=== PATIENT | female | born 1955 | race Caucasian/White ===

== ENCOUNTER 2017-09-09 14:27 | Observation (INO) ==
[2017-09-09] MEDS ORDERED: Ondansetron 4 MG/2 ML VIAL IVP PRN (22:03)
[2017-09-09] MEDS ORDERED: Naloxone 0.4 MG/ML INJ IVP PRN (22:03)
[2017-09-09] MEDS ORDERED: *HR* Morphine 2 MG/ML SYRINGE IVP PRN (22:03)
[2017-09-09] MEDS ORDERED: *HR* OxyCODONE Immed Rel 5 MG TABLET PO PRN (22:03)
[2017-09-09] MEDS ORDERED: Acetaminophen 325 MG TABLET PO PRN (22:03)
[2017-09-09] MEDS ORDERED: 0.9 % Sodium Chloride w KCl 20 MEQ/1,000 ML MLS IVC SCH (22:15)
--- NOTE | 2017-09-09 22:29 | Internal Med History&Physical ---
Date of Encounter: 09/09/17 Time of Encounter: 21:55 Assessment and Plan (1) Fracture dislocation of left shoulder joint Current visit: Yes Status: Acute 1. Patient with no medical problems or history. 2. Consult orthopedics for surgical intervention. 3. Will order pre-op EKG and routine labs. In my opinion, she is low risk for cardiovascular darryl-operative complications. 4. Further carer per Orthopedics. Qualifiers: Encounter type: initial encounter Fracture type: closed Qualified Code(s) : S42.92XA - Fracture of left shoulder girdle, part unspecified, initial encounter for closed fracture (2) DVT prophylaxis Current visit: Yes Status: Acute 1. Heparin SQ. Internal Medicine - H&P: HPI Chief complaint: shoudler pain Admitted From: Hospital to Hospital Transfer Plans for Post Hospital Care: Home History of present illness: Ms. Godfrey is a 62 year old female who presents in transfer from [facility] ER at the request of Dr. Anguiano. Patient was found to have a humeral neck fracture of her left shoulder after having sustained a mechanical fall earlier today in her house. X-ray and CT imaging confirmed the findings. ER staff contacted Dr. Anguiano from orthopedics, and he requested admission to the hospitalist service with a consult to him. Upon arrival to the hospital, I saw patient and she is resting in bed comfortably. She does have some pain with movement of her shoulder and arm. Otherwise, she is in no distress. Regarding her fall, she states it was mechanical as she tripped over an object on the floor. She denies any syncopal event. She denies any lightheadedness, dizziness, palpitations, chest pain, shortness of breath, or any focal weakness. She has no chronic medical problems and takes no medications. She denies any history of angina or anginal type symptoms. Past Med Surg Social Fam HX - Past Medical History Attestation: Yes The following information was validated with the patient. Source: patient, old records reviewed Medical history: no medical history Psychiatric history: no psych history - Past Surgical History Surgical History: cholecystectomy, hysterectomy - Social History Smoking Status: Never smoker Alcohol use: none Drug use: none Current living situation: Home, With Family Activity Level: Independent ambulation Recent Out of Country Travel Within the Last 8 Weeks: No - Family History Mother Living Status: Still Living Hx Family Cardiac Disorders: No Hx Family Respiratory Disorders: No Father Living Status: Age at : 88 Hx Family Cardiac Disorders: Yes Hx Family Respiratory Disorders: No Internal Medicine - H&P: Meds No Known Home Drugs 09/09/17 [History] 3 Allergy/AdvReac Type Severity Reaction Status Date / Time No Known Allergies Allergy Verified 09/09/17 12:39 - Constitutional Constitutional: no chills, no fever(s) - EENT Eyes: no blurry vision, no change in vision Ears: no ear pain, no tinnitus Nose, mouth and throat: no nasal congestion, no sinus pain, no sinus pressure - Cardiovascular Cardiovascular ROS IM: no chest pain, no dyspnea, no dyspnea on exertion, no lightheadedness, no palpitations, no syncope - Respiratory Respiratory: no cough, no dyspnea, no dyspnea on exertion, no wheezing, no pain on inspiration, no chest congestion - Gastrointestinal Gastrointestinal: no abdominal pain, no diarrhea, no hematemesis, no hematochezia, no melena, no vomiting - Genitourinary Genitourinary: no dysuria, no flank pain, no hematuria - Musculoskeletal Musculoskeletal ROS IM: no back pain, no numbness Additional comments: pain/swelling in her left shoulder - Integumentary Integumentary IM: no rash, no jaundice - Neurological Neurological ROS: no focal weakness, no frequent falls, no headache(s), no weakness - Psychiatric Psychiatric: no anxiety, no depression - Endocrine Endocrine IM: no polydipsia, no polyuria - Hematologic/Lymphatic Hematologic/Lymphatic: no easy bruising, no lymphadenopathy - Allergic/Immunologic Allergic/Immunologic: no wheezing, no GI upset with certain foods - Constitutional Vitals: Temp Pulse Resp BP Pulse Ox 98.4 F 87 18 132/78 95 09/09/17 19:00 09/09/17 19:00 09/09/17 19:00 09/09/17 19:00 09/09/17 19:00 General appearance: Present: cooperative, A&O X 3, pleasant, no acute distress - Head Head exam: Present: atraumatic, normal inspection - Eye Eye exam: Present: EOMI, PERRL. Absent: scleral icterus Pupils: Present: normal accommodation - ENT ENT exam: Present: mucous membranes dry, normal exam - Neck Neck exam general surgery: Present: full ROM, supple. Absent: tenderness - Respiratory Respiratory exam: Present: CTAB. Absent: chest wall tenderness, rales, respiratory distress, rhonchi, wheezes - Cardiovascular Cardiovascular exam: Present: RRR, +S1, +S2. Absent: diastolic murmur, systolic murmur - GI/Abdominal GI/Abdominal exam: Present: normal bowel sounds, soft. Absent: hepatomegaly, mass, splenomegaly, tenderness - Extremities Exam Extremities exam: Present: normal capillary refill, tenderness (left shoulder - - arm in sling), warm, radial pulses palpable and symmetrical. Absent: calf tenderness - Back Exam Back exam: Absent: CVA tenderness (L), CVA tenderness (R) - Neurological Exam Neurological exam: Present: alert, CN II-XII intact, oriented X3, no focal deficits - Psychiatric Psychiatric exam: Present: normal affect, normal mood - Skin Skin exam: Present: dry, warm. Absent: rash Internal Med - H&P Results - Labs Labs: I reviewed her labs from [place] include the following: WBC 12.1 Hemoglobin 12.9 Hematocrit 37.9 Platelet count 254 PT 10.7 INR 1.0 PTT 23.1 Sodium 136 Potassium 3.5 Chloride 101 CO2 26 BUN 22 Creatinine 0.[address] X-ray and CT of her left upper extremity revealed humeral neck fracture.
[2017-09-09] MEDS: *HR* Heparin 5,000 UNIT/ML VIAL SQ SCH (22:50)
[2017-09-10 03:30] LABS: Basophils % 0.2 %; Eosinophils # 0.1 K/mcL (0.0-0.6); Eosinophils % 0.8 %; Hematocrit 35.7 % (35.3-44.9); Hemoglobin 11.9 g/dL (11.5-15.4); Immature Granulocytes % 0.2 % (0-4); Lymphocytes # 2.4 K/mcL (0.6-4.6); Lymphocytes % 23.7 %; Mean Corpuscular HGB Conc 33.3 g/dL (31.6-35.5); Mean Corpuscular Hemoglobin 29.2 pg (28.0-33.3); Mean Corpuscular Volume 87.5 fL (83.0-100.0); Mean Platelet Volume 8.9 fL (9.4-12.4); Monocytes # 0.8 K/mcL (0.0-1.3); Monocytes % 8.3 %; Neutrophils # 6.6 K/mcL (1.6-8.9); Platelet Count 260 K/mcL (140-400); Red Blood Count 4.08 M/mcL (3.82-4.97); Red Cell Distribution Width 13.3 % (11.5-14.5); Segmented Neutrophils % 66.8 %
[2017-09-10 03:43] LABS: Alanine Aminotransferase 148 Units/L (7-52); Albumin 3.8 g/dL (3.5-5.7); Albumin/Globulin Ratio 1.3 (1.1-2.2); Alkaline Phosphatase 100 Units/L (34-104); Aspartate Amino Transferase 119 Units/L (13-39); BUN/Creatinine Ratio 23 (6-26); Bilirubin,Total 1.2 mg/dL (0.3-1.0); Blood Urea Nitrogen 17 mg/dL (8-23); Calcium 8.8 mg/dL (8.6-10.3); Carbon Dioxide 27 mEq/L (23-29); Chloride 104 mEq/L (98-107); Glucose 104 mg/dL (70-105); Osmolality,Calculated 284 (280-300); Sodium 136 mEq/L (136-145); Total Protein 6.8 g/dL (6.4-8.9); eGFR For African Americans > 60 (> 60); eGFR For Non-African Americans > 60 (> 60)
[2017-09-10 04:16] LABS: INR 1.1; Prothrombin Time 11.3 Seconds (9.4-12.1)
[2017-09-10 04:19] LABS: Activated Partial Thrombo Time 24.3 Seconds (26.0-36.0)
[2017-09-10] MEDS: *HR* Heparin 5,000 UNIT/ML VIAL SQ SCH (04:47)
[2017-09-10] MEDS ORDERED: *HR* FentaNYL (PF) 100 MCG/2 ML VIAL ONE (07:07)
[2017-09-10] MEDS ORDERED: *HR* Propofol 200 MG/20 ML VIAL IVP ONE (07:08)
[2017-09-10] MEDS ORDERED: *HR* Midazolam HCl 2 MG/2 ML VIAL ONE (07:08)
[2017-09-10] MEDS ORDERED: Lidocaine -MPF 2% 2 ML VIAL ONE (07:12)
[2017-09-10] MEDS ORDERED: *HR* Succinylcholine 200 MG/10 ML VIAL IVP ONE (07:12)
--- NOTE | 2017-09-10 07:24 | Anesthesia Evaluation PreOp ---
Date of Encounter: 09/10/17 Time of Encounter: 07:22 - Past History Planned Operation: Left Reverse Total Shoulder Cardiac History: Denies any Significant Hx Pulmonary History: Denies Any Significant HX INSTRUMENT REPAIR SUPERVISOR History: Denies Any Significant HX Other Medical History: Denies Any Significant HX Anesthesia History: No Prior Anesthetic Complications, Past Anesthesia Alcohol Use: none Drug use: none Medications and Allergies No Known Home Drugs 09/09/17 [History] 3 Allergy/AdvReac Type Severity Reaction Status Date / Time No Known Allergies Allergy Verified 09/09/17 12:39 - Meds/Allergy Pre-op Review Medications Reviewed: Yes Allergies Reviewed: Yes Beta Blockers on Current Med List: No Anesthesia Results - Labs 09/10/17 03:08 09/10/17 03:08 Anesthesia Exam Vital Signs/O2 Sat, Most Current Temp Pulse Resp BP Pulse Ox 99.3 F 87 17 154/74 94 09/10/17 04:50 09/10/17 04:50 09/10/17 04:50 09/10/17 04:50 09/10/17 04:50 Height: 5'3''/1.6m Weight: 217 lbs/98.4 kg NPO (# of Hours): 8 Pain Scale: 4 (left shoulder) Pain Scale Used: Numeric (1 - 10) - HEENT Pupil (Motor): EOMI Mallampati: II Teeth: Edentulous Denture Type: Upper: Complete, Lower: Complete Oral Opening: Greater than 3 - INSTRUMENT REPAIR SUPERVISOR LOC: Oriented INSTRUMENT REPAIR SUPERVISOR Motor: Normal RUE, Normal LUE, Normal RLE, Normal LLE, Normal Face INSTRUMENT REPAIR SUPERVISOR Sensory: Normal: RUE, LUE, RLE, LLE, Face - Cardiac Rhythm: Regular Murmur: None - Pulmonary Breath Sounds: bilateral Clear Respiratory Effort: Symmetrical Anesthesia Assess/Plan ASA Score: 2 Modified Joy Scale for Level of Consciousness: Cooperative, oriented, and tranquil Anesthetic Plan: General, Regional Monitoring Plan: Standard Monitors Recovery Plan: PACU
[2017-09-10] MEDS ORDERED: Ipratropium/Albuterol Neb 3 ML ONE (07:33)
[2017-09-10] MEDS ORDERED: ROPIVACAINE HCL/PF 0.5% 30 ML VIAL ONE (07:36)
[2017-09-10] MEDS ORDERED: Dexamethasone 4 MG/ML VIAL ONE ×2 (07:37→09:12)
--- NOTE | 2017-09-10 07:39 | Orthopedic Consult Note ---
Date of Encounter: 09/10/17 Time of Encounter: 07:36 Assessment and Plan (1) Proximal humerus fracture Current Visit: Yes Status: Acute Diagnosis and treatment options were discussed with Veronica. She was displaced 4 part proximal humerus fracture and previously had good use of the shoulder. After discussing operative and nonoperative treatment options she is elected to proceed with a left reverse total shoulder with tuberosity repair. Risks and benefits of the procedure were discussed with the patient and she is in agreement to proceed. Consent was obtained. Nothing by mouth for surgery today. Qualifiers: Encounter type: initial encounter Fracture type: closed Fracture alignment: displaced Laterality: left Qualified Code(s): S42.292A - Other displaced fracture of upper end of left humerus, initial encounter for closed fracture History of Present Illness Chief complaint: L shoulder pain HPI: Ms. Godfrey is a 62 year old female sustained a fall onto her left shoulder yesterday. She had immediate pain in the shoulder. She presented to the [place] ER and was diagnosed with a fracture dislocation of her left proximal humerus. The shoulder was reduced in the ER and then she was transferred here for definitive management. She has pain and swelling in the left shoulder. Denies other injury. Neurovascularly she has no complaints. Past Med Surg Social Fam HX - Past Medical History Medical history: no medical history Psychiatric history: no psych history - Past Surgical History Surgical History: cholecystectomy, hysterectomy - Social History Smoking Status: Never smoker Alcohol use: none Drug use: none - Family History Mother Living Status: Still Living Hx Family Cardiac Disorders: No Hx Family Respiratory Disorders: No Father Living Status: Age at : 88 Hx Family Cardiac Disorders: Yes Hx Family Respiratory Disorders: No Medications and Allergies No Known Home Drugs 09/09/17 [History] 3 Allergy/AdvReac Type Severity Reaction Status Date / Time No Known Allergies Allergy Verified 09/09/17 12:39 All Systems Reviewed: A 10-system review of systems was performed and is negative for pertinent findings except as documented above in the HPI. Physical Exam - Constitutional Vitals: Temp Pulse Resp BP Pulse Ox 99.3 F 87 17 154/74 94 09/10/17 04:50 09/10/17 04:50 09/10/17 04:50 09/10/17 04:50 09/10/17 04:50 General appearance IM: A&O X 3, no acute distress Exam: Consult Exam: Constitutional -Vitals reviewed -The patient is well developed and well nourished. -Mood is pleasant. -The patient is well groomed. Psychiatric -The patient is fully alert and oriented x 3. Respiratory: -Respiratory effort normal Abdomen: -Soft abdomen -Non tender -Non distended: Left upper extremity: -Swelling and deformity over left shoulder -TTP proximal humerus -Able to make an "OK" sign, cross the index and long fingers, and extend the thumb. -Sensation grossly intact to light touch throughout the axillary, median, radial , and ulnar distributions. -Radial pulse is present; Fingers have good capillary refill. Right upper extremity: -No deformities. The overlying skin is intact. No obvious signs of acute trauma. -No tenderness to palpation throughout. -No significant pain with passive motion of the shoulder, elbow, wrist, and fingers within the limits of the bed. -Able to make an "OK" sign, cross the index and long fingers, and extend the thumb. -Sensation grossly intact to light touch throughout the median, radial, and ulnar distributions. -Radial pulse is present; Fingers have good capillary refill. Left lower extremity: -No deformities. The overlying skin is intact. No obvious signs of acute trauma. -No tenderness to palpation throughout. -No pain with passive motion of the hip, knee, ankle, and toes within the limits of the bed. -No pain with axial loading of the thigh. -Able to dorsiflex and plantarflex the ankle and toes. -Sensation is grossly intact to light touch throughout the sural, saphenous, superficial peroneal, and deep peroneal distributions. -Toes have good capillary refill. Right lower extremity: -No deformities. The overlying skin is intact. No obvious signs of acute trauma. -No tenderness to palpation throughout. -No pain with passive motion of the hip, knee, ankle, and toes within the limits of the bed. -No pain with axial loading of the thigh. -Able to dorsiflex and plantarflex the ankle and toes. -Sensation is grossly intact to light touch throughout the sural, saphenous, superficial peroneal, and deep peroneal distributions. -Toes have good capillary refill. Results - Labs Result Diagrams: 09/10/17 03:08 09/10/17 03:08 Labs: Abnormal lab results MPV 8.9 fL (9.4-12.4) L 09/10/17 03:08 APTT 24.3 Seconds (26.0-36.0) L 09/10/17 03:08 Total Bilirubin 1.2 mg/dL (0.3-1.0) H 09/10/17 03:08 AST 119 Units/L (13-39) H 09/10/17 03:08 ALT 148 Units/L (7-52) H 09/10/17 03:08 H & H 09/10/17 Range/Units 03:08 Hgb 11.9 (11.5-15.4) g/dL Hct 35.7 (35.3-44.9) % All other labs normal. - Diagnostic results Shoulder x-ray: report reviewed, image reviewed Shoulder CT: report reviewed, image reviewed (Displaced, comminuted 4 part proximal humerus fracture) Consult Discharge Plan - Plan Referrals: Bridgett Pelaez MD [Primary Care Provider] -
--- NOTE | 2017-09-10 08:06 | Anesthesia Procedures ---
Date of Encounter: 09/10/17 Time of Encounter: 08:04 Procedures: Anesthesia - Nerve Block Procedure Date: 09/10/17 Time: 08:04 Allergies/Adv Reactions: NKDA Pre-op Diagnosis: L shoulder fracture Surgical Procedure: L TSR Checklist: Correct Patient Identifier, Correct procedure, History checked Correct side: Left Blood Thinner: No Monitor Applied: EKG, BP, Pulse Oximetry Supplemental Oxygen via Nasal Cannula (L/min): 4 Sedation: Versed (mg): 2 Sedation: Fentanyl (mcg): 100 Indication: Post Op Analgesia (requested by Dr. Anguiano) Pre-op Neuro Deficits: No Block Type: Supraclavicular Catheter placed: No Sterile Technique: Yes Ultrasound used: Yes Anatomy identified: Yes Visual spread of Local: Yes Neuro Stimulation: No Blood on Needle Aspiration: No Smooth Injection of Local: Yes Pain with Injection of Local: No Prep: Chlorhexadine Needle: 22 x 50 mm Stimuplex Local: Ropivacaine (0.5%, 30mL), Other (4mg dexamethasone) Number of Attempts: 1 Complications: None/effective block Vitals: 3 Vital Signs Time pre-procedure post-procedure BP 151/95 135/69 Pulse 88 80 Resp 16 18 O2 Sat 98 97
[2017-09-10] MEDS ORDERED: *HR* HYDROmorphone (PF) 1 MG/ML SYRINGE IVP PRN (08:10)
[2017-09-10] MEDS ORDERED: Ondansetron 4 MG/2 ML VIAL IVP PRN ×3 (08:10→11:31)
[2017-09-10] MEDS ORDERED: *HR* Labetalol 20 MG/4 ML SYRINGE IVP PRN (08:10)
[2017-09-10] MEDS ORDERED: Ipratropium Neb 0.5 MG NEBULIZER IH PRN ×2 (08:10→11:31)
[2017-09-10] MEDS ORDERED: Albuterol 2.5 MG/3 ML NEBULIZER IH PRN ×2 (08:10→11:31)
[2017-09-10] MEDS ORDERED: Tranexamic Acid 1,000 MG/10 ML VIAL ONE (08:29)
[2017-09-10] MEDS ORDERED: ceFAZolin 2,000 MG in Water for inj. (sterile) 20 ML IVP ONE (08:57)
[2017-09-10] MEDS ORDERED: Ondansetron 4 MG/2 ML VIAL ONE (09:12)
[2017-09-10] MEDS ORDERED: *HR* Morphine 10 MG/ML VIAL ONE (10:14)
[2017-09-10] MEDS ORDERED: Ringers Solution, Lactated 1,000 ML ONE (10:44)
[2017-09-10] MEDS ORDERED: Plasma-Lyte A (PH 7.4) 1,000 ML IVC SCH ×2 (10:45→11:31)
--- NOTE | 2017-09-10 11:29 | Anesthesia Evaluation Post Op ---
Date of Encounter: 09/10/17 Time of Encounter: 11:10 - Vital Signs Vital Signs: Vital Signs/O2 Sat, Most Current Temp Pulse Resp BP Pulse Ox 98.1 F 81 16 126/75 94 09/10/17 11:09 09/10/17 11:09 09/10/17 11:09 09/10/17 11:09/10/17 11:09 - Lungs Lungs: Clear Ascult./Percussion - Airway Airway: Non-obstructed - Cardiovascular Regular Rate - Mental Status Mental Status: Asleep with brisk response to light stimulation - Pain Pain Scale: 0 Pain Scale used: Numeric (1 - 10) - Nausea Vomiting Nausea Vomiting: Not Present - Hydration Hydration: NPO, Has not voided - Discharge PostOp Status: Transfer Patient to floor
[2017-09-10] MEDS ORDERED: Naloxone 0.4 MG/ML INJ IVP PRN (11:31)
[2017-09-10] MEDS ORDERED: Sennosides 8.6 MG TABLET PO PRN (11:31)
[2017-09-10] MEDS ORDERED: MOM Conc 10 ML UD.LIQ PO PRN (11:31)
[2017-09-10] MEDS ORDERED: *HR* Morphine 2 MG/ML SYRINGE IVP PRN (11:31)
[2017-09-10] MEDS ORDERED: Acetaminophen 325 MG TABLET PO PRN (11:31)
[2017-09-10] MEDS ORDERED: Ringers Solution, Lactated 1,000 ML IVC SCH (11:31)
[2017-09-10] MEDS ORDERED: Temazepam 15 MG CAPSULE PO PRN (11:31)
--- NOTE | 2017-09-10 11:52 | Orthopedic Operative Note ---
Date of procedure: 09/10/17 Pre-op diagnosis: Left proximal humerus fracture Post-op diagnosis: same Procedure: 1. Left reverse total shoulder arthroplasty 2. Left open biceps tenodesis 3. Left shoulder tuberosity repair Indications: This is a 62-year-old female who had a fall and sustained a displaced four part left proximal humerus fracture. Operative and non-operative treatment options were discussed with the patient, and the patient has elected for a left reverse shoulder replacement with tuberosity repair. The risks and benefits of the procedure were fully explained to the patient. These risks include, but are not limited to, the risk of infection, neurovascular injury, continued pain and stiffness of the shoulder, need for further surgery, DVT, PE , loss of limb and loss of life. The patient did understand all of these risks and wishes to proceed. Informed consent was then obtained. Operative procedure: The patient was brought back to the OR suite by the anesthesia staff. The patient was then placed supine on the operating table and all bony prominences were padded. The anesthesiologist then performed successful general anesthetic for the remainder of the case. The head, neck and airway were secured and protected by anesthesia. The bed was elevated about 30 degrees. The right upper extremity was then prepped and draped in the normal sterile orthopedic fashion and placed in the [place] arm joseph. Preoperative antibiotics were then given prior to incision. A timeout was performed confirming the correct patient, site and side, procedure to be performed and any allergies. All were in agree and we did proceed. A standard deltopectoral approach was performed. We dissected down through the skin coagulating any bleeders were encountered. The cephalic vein was then identified and taken laterally with the deltoid. Adhesions were cleared from underneath the deltoid and a brown retractor was placed. The interval between the deltoid and pectoralis was then developed and kolbel retractor was placed. A Darrach retractor was then placed under the acromion. The biceps tendon was exposed and identified, and then released proximally into the rotator interval. Soft tissue tenodesis of the remaining biceps was then performed. The lateral border of the conjoined tendon was then identified and the fracture of the lesser tuberosity, humeral head, and greater tuberosity fragments were identified. The lesser tuberosity fragment was off of the humeral shaft, this was retracted, exposing the humeral head. The humeral head was removed using a pointed reduction clamp. Several niceloop sutures were then placed around the lesser and greater tuberosities. Any bony debris was removed from the proximal humerus. Attention was then turned to the glenoid. The humerus was subluxed posteriorly and retractors were placed on the anterior and posterior aspects of the glenoid. A 360 degree release of the subscapularis was performed, and the axillary nerve was palpated and protected throughout the case. Labral debridement was then performed. A central guide pin was placed in the appropriate position on the glenoid. The central drill hole was made and the glenoid was then reamed in accordance with the aequalis reverse system. The baseplate was impacted in place and the remaining peripheral drill holes were drilled and the appropriate length screws were placed, 2 in compression, 2 locking. The lateralized glenosphere was then inserted and locked in to place with the locking screw. Attention was turned back to the humerus. The humerus was subluxed back anteriorly and the humerus was reamed and broached up to a size 5. A trial humeral stem and cup were placed. Trial reduction was then performed to make sure we could reduce the humerus. The size 5 stem was then press fit in place, using the greater tuberosity as a guide to our humeral height. We retrialed the humeral cup and tray until we had adequate stability. We also ensured the greater and lesser tuberosity could be reduced to the stem. The final size +9 humeral cup was placed and the shoulder reduced. The niceloop sutures from the lesser and greater tuberosities were then passed through the fracture stem. Bone graft from the humeral head was placed on the undersurface of both tuberosities to aid in healing. The tuberosities were then held in place and tied back on to the humeral shaft. The shoulder was then taken through ROM to ensure stability of the prosthesis and tuberosity repair. The wound was then copiously irrigated, the deltopectoral interval was tagged with 2-0 surgilon, and the incision was closed with 2-0 stratafix deep and a running 3-0 stratafix subcuticular. Sterile dressing was placed, the arm was placed in a sling and the patient was taken to the PACU in stable condition. There were no complications during the case. Post op plan: The patient will go into the reverse shoulder protocol. Implants: tornier aequalis flex 5B PTC stem +0 centered tray 36+9 mm poly 25 mm standard baseplate 36x25 mm lateralized glenosphere Complications: none Anesthesia: GETA, regional Surgeon: Ty Anguiano Was there an assistant pastry chef present: No Estimated blood loss (cc): 150 Condition: stable Disposition: PACU
[2017-09-10] MEDS: 0.9 % Sodium Chloride w KCl 20 MEQ/1,000 ML MLS IVC SCH ×2 (12:16→17:14)
--- NOTE | 2017-09-10 14:13 | Discharge Summary ---
Date of Encounter: 09/10/17 Time of Encounter: 14:10 - Discharge Diagnosis (1) Fracture dislocation of left shoulder joint Priority: Primary Status: Acute Qualifiers: Encounter type: initial encounter Fracture type: closed Qualified Code(s) : S42.92XA - Fracture of left shoulder girdle, part unspecified, initial encounter for closed fracture (2) Elevated LFTs Priority: Secondary Status: Acute - Discharge Medications Prescriptions: OxyCODONE Immed Rel [Roxicodone 5 MG] 5 mg PO Q6HR PRN #10 tablet PRN Reason: Moderate Pain (4-6) Home Medications: OxyCODONE Immed Rel [Roxicodone 5 MG] 5 mg PO Q6HR PRN #10 tablet 09/10/17 [Rx] Allergies/Adverse Reactions: 3 Allergy/AdvReac Type Severity Reaction Status Date / Time No Known Allergies Allergy Verified 09/09/17 12:39 Procedures/tests Complete & Pending: Procedures Performed prior 72 hours Category Date Time Status ECG 12 lead ECG [ECG] Routine Y 09/09/17 22:03 Ordered Date of admission: 09/09/17 17:45 Primary care physician: Bridgett Pelaez MD Consults: 09/09/17 22:05 Consult to Physician [CONS] Routine Consulting Provider: Ty Anguiano Reason for Consult: humeral neck fracture Call Completed: Yes 09/10/17 11:31 Consult to Occupational Therapy [CONS] Routine Comment: post shoulder surgery Reason for Consult: post shoulder surgery Consult to Physical Therapy [CONS] Routine Comment: post shoulder surgery Reason for Consult: post shoulder surgery RT Post Op Consult [CONS] Routine Discharging clinician: Estrellita Pan - Patient Status Disposition: Home Health Service Condition: Good Functional capacity at discharge: independent ambulation Overall status at discharge: patient is progressing back to baseline - Discharge Instructions Follow Up With: Ty Anguiano MD [Non-Partnered Physician] - (10-12 day followup requested via web request on 09/10/17) - Diet and Activity Activity: as per physical therapy Diet: advance to your usual diet Hospital course: Ms. Godfrey is a 62 year old female who presents in transfer from [facility] ER at the request of Dr. Anguiano. Patient was found to have a humeral neck fracture of her left shoulder after having sustained a mechanical fall earlier today in her house. X-ray and CT imaging confirmed the findings. ER staff contacted Dr. Anguiano from orthopedics, and he requested admission to the hospitalist service with a consult to him. Upon arrival to the hospital, I saw patient and she is resting in bed comfortably. She does have some pain with movement of her shoulder and arm. Otherwise, she is in no distress. Regarding her fall, she states it was mechanical as she tripped over an object on the floor. She denies any syncopal event. She denies any lightheadedness, dizziness, palpitations, chest pain, shortness of breath, or any focal weakness. She has no chronic medical problems and takes no medications. She denies any history of angina or anginal type symptoms. Orthopedic Surgery was consulted and evaluated patient. Patient agreeable to surgery. She underwent Left reverse total shoulder arthroplasty and tuberosity repair. Tolerated procedure well. Patient was stable from Orthopedic Surgery standpoint. From medical standpoint she was stable was well. She was evaluated by PT/OT. I spoke to physical therapist and she notees that she would benefit from one more night due to amount of assistance that was needed today. Patient declined, but she is willing to have HHC with PT/OT. She was discharged home in stable condition. Note she had increased LFTs and was asymptomatic without any physical findings consistent with hepatobiliary pathology. It was recommended that she have a repeat LFT panel done in one week and follow-up with her primary care provider. - Time Spent with Patient Total time spent providing and/or coordinating discharge services: - Constitutional Vitals: Temp Pulse Resp BP Pulse Ox 98.1 F 81 16 121/76 92 09/10/17 11:09 09/10/17 12:00 09/10/17 12:00 09/10/17 12:00 09/10/17 12:00 General appearance: Present: cooperative, A&O X 3, pleasant, no acute distress Exam: - Head Head exam: Present: atraumatic, normal inspection - Eye Eye exam: Present: EOMI, PERRL. Absent: scleral icterus Pupils: Present: normal accommodation - ENT ENT exam: Present: mucous membranes dry, normal exam - Neck Neck exam general surgery: Present: full ROM, supple. Absent: tenderness - Respiratory Respiratory exam: Present: CTAB. Absent: chest wall tenderness, rales, respiratory distress, rhonchi, wheezes - Cardiovascular Cardiovascular exam: Present: RRR, +S1, +S2. Absent: diastolic murmur, systolic murmur - GI/Abdominal GI/Abdominal exam: Present: normal bowel sounds, soft. Absent: hepatomegaly, mass, splenomegaly, tenderness - Extremities Exam Extremities exam: Present: normal capillary refill, tenderness (left shoulder - - arm in sling), warm, radial pulses palpable and symmetrical. Absent: calf tenderness - Back Exam Back exam: Absent: CVA tenderness (L), CVA tenderness (R) - Neurological Exam Neurological exam: Present: alert, CN II-XII intact, oriented X3, no focal deficits - Psychiatric Psychiatric exam: Present: normal affect, normal mood - Skin Skin exam: Present: dry, warm. Absent: rash - VTE Documentation of Mechanical Device: Intermittent pneumatic compression device
--- NOTE | 2017-09-10 14:21 | Physician Discharge Referral ---
Home Health/Hosp Referral Info Transfer to: Home Health Provider in Charge Post Discharge: PCP - Diagnosis (1) Fracture dislocation of left shoulder joint Priority: Primary Status: Acute (2) Elevated LFTs Priority: Secondary Status: Acute - Respiratory Orders Smoking Cessation: Smoking cessation has been advised. For more information, call the [place] Tobacco Quit Line at 9-291-BQZI-NOW. - Diet/Nutrition Diet/Nutrition Orders: Regular - Activity Activity: List: as per physical therapy - Services Needed Following services are medically necessary services: Physical Therapy, Occupational Therapy - Transfer Medications Prescriptions: OxyCODONE Immed Rel [Roxicodone 5 MG] 5 mg PO Q6HR PRN #10 tablet PRN Reason: Moderate Pain (4-6) Home Medications: OxyCODONE Immed Rel [Roxicodone 5 MG] 5 mg PO Q6HR PRN #10 tablet 09/10/17 [Rx] Allergies/Adverse Reactions: 3 Allergy/AdvReac Type Severity Reaction Status Date / Time No Known Allergies Allergy Verified 09/09/17 12:39 Certification: Further, I certify that my clinical findings support that this patient is homebound (i.e. absences from home require considerable and taxing effort and are for medical reasons or christian services or infrequently or short duration when for other reasons) because: Homebound Reason: Post-surgery restriction and or conditions limit ability to leave home Attestation: My signature below is to certify that this patient is under my care and that I, or nurse practitioner, or a physician's assistant farm operations manager working with me, has a face-to -face encounter with this patient.
[2017-09-10] MEDS: CeFAZolin Premix DUPLEX 2,000 MG/50 ML BAG IVPB SCH (17:02)
[2017-09-10] MEDS ORDERED: *HR* Heparin 5,000 UNIT/ML VIAL SQ SCH (18:00)
[2017-09-11] MEDS: CeFAZolin Premix DUPLEX 2,000 MG/50 ML BAG IVPB SCH (00:51)
[2017-09-11] MEDS: *HR* OxyCODONE Immed Rel 5 MG TABLET PO PRN ×2 (02:24→09:14)
[2017-09-11 04:30] LABS: Hematocrit 29.3 % (35.3-44.9)
[2017-09-11 04:43] LABS: Hemoglobin 9.5 g/dL (11.5-15.4)
[2017-09-11 06:48] VITALS: BP 162/80
--- NOTE | 2017-09-13 07:08 | Electrocardiograph Report ---
[place] [id number] Test Date: 2017-09-10 Pat Name: Veronica Godfrey Department: 114 Room: [facility] Gender: F [employer]: : [id number] Requested By: Darrell Ohara Order Number: [id number] Reading MD: Alan Couch MD Measurements Intervals [place] Rate: 87 P: 19 NC: 181 QRS: -6 QRSD: 87 T: 13 QT: 353 QTc: 397 Interpretive Statements SINUS RHYTHM VOLTAGE CRITERIA FOR LVH Electronically Signed On 09-13-2017 7:06:50 EST by Alan Couch MD
== END 2017-09-11 09:54 | disposition home health service (06) ==
LOC: 3NENU 17:45 → INTOOBSV 17:45 → 3NENU 18:06
PROVIDERS: ADMIT Hospitalist; ATTEND Hospitalist